=== PATIENT | female | born 1995 | race Two or more races ===

== ENCOUNTER 2024-07-26 12:02 | Observation (INO) | payer MEDICAID, SELFPAY ==
[2024-07-26 12:39] VITALS: BMI 22.3
[2024-07-26] MEDS ORDERED: hydrALAZINE 20 MG/ML VIAL SLOW IVP PRN ×2 (12:48→14:13)
[2024-07-26 13:54] LABS: FFN Internal QC Analyzer PASS (PASS); FFN Internal QC Cassette PASS (PASS); Fetal Fibronectin Negative (Negative)
[2024-07-26] MEDS ORDERED: Betamet Acet/Betamet Na Ph 30 MG/5 ML VIAL ONE (14:05)
[2024-07-26] MEDS ORDERED: Carboprost 250 MCG/ML AMP IM PRN (14:13)
[2024-07-26] MEDS ORDERED: Methylergonovine 0.2 MG/ML VIAL IM PRN (14:13)
[2024-07-26] MEDS ORDERED: Acetaminophen 500 MG TAB PO PRN (14:13)
[2024-07-26] MEDS ORDERED: Ondansetron PF 4 MG/2 ML Vial IVP PRN (14:13)
[2024-07-26] MEDS ORDERED: Misoprostol 200 MCG TAB PR PRN (14:13)
[2024-07-26] MEDS ORDERED: Tranexamic Acid 1,000 MG/10 ML VIAL IVP PRN (14:13)
[2024-07-26] MEDS ORDERED: Diphenoxylate HCl/Atropine Tablet PO PRN (14:13)
[2024-07-26] MEDS ORDERED: Oxytocin 30 units/NS 500 ML 500 ML IV SCH (14:15)
[2024-07-26 14:29] LABS: Bilirubin Neg (Negative); Blood, Urine Negative (Negative); Clarity Clear (Clear); Glucose, Urine (Dipstick) Normal (Negative); Ketone, Urine Negative (Negative); Leukocyte Negative (Negative); Nitrite Negative (Negative); Protein, Urine (Dipstick) Negative (Neg-Trace); Urobilinogen Normal mg/dL (Less than 2); pH, Urine 6.5 (5.0-9.0)
[2024-07-26] MEDS: Betamet Acet/Betamet Na Ph 30 MG/5 ML VIAL IM SCH (14:29)
[2024-07-26 15:07] LABS: Bacteria/HPF Rare-Few HPF (None Seen); CAUTI Indications for Culture Pregnancy; RBC/HPF 0-3 HPF (0-3); Squamous Epithelial Greater than 50 HPF (0-3); WBC/HPF 0-3 HPF (0-3)
[2024-07-26 15:08] LABS: Urine Culture Reflex No No; Urine Culture Reflex Yes Yes
[2024-07-26 15:18] LABS: #Basophils 0.01 10x3/uL (0.0-0.2); #Eosinophils 0.03 10x3/uL (0.0-0.5); #Monocytes 0.58 10x3/uL (0.0-1.1); %Basophils 0.1 % (0.0-2.0); %Eosinophils 0.4 % (0.0-6.0); %Lymphocytes 17.6 % (18.0-47.0); %Monocytes 7.5 % (0.0-10.0); %Neutrophils 73.9 % (40.0-75.0); Hematocrit 32.8 % (34.9-44.5); Hemoglobin 10.8 g/dL (12.0-15.5); Mean Corpuscular HGB CONC 32.9 g/dL (32.0-36.0); Mean Corpuscular Hemoglobin 26.2 pg (27.0-33.0); Mean Corpuscular Volume 79.4 fL (81.6-98.3); Platelet Count 233 10x3/uL (150-450); RBC Distribution Width 13.2 % (11.5-14.5); Red Blood Cell (RBC) Count 4.13 10x6/uL (3.90-5.03); White Blood Cell (WBC) Count 7.7 10x3/uL (3.5-10.5)
[2024-07-26 15:36] LABS: ALT (SGPT) Less than 7 U/L (8-55); AST (SGOT) 11 U/L (5-34); Albumin 2.9 g/dL (3.5-5.0); Alkaline Phosphatase 92 U/L (40-110); Anion Gap 14 mmol/L (10-20); BUN (Urea Nitrogen) 4 mg/dL (7.0-18.7); Bilirubin, Total 0.4 mg/dL (0.2-1.2); Calc. Creatinine Clearance 128 mL/min (70-130); Calcium 8.8 mg/dL (7.8-10.44); Carbon Dioxide 18 mmol/L (22-29); Chloride 108 mmol/L (98-107); Estimated GFR 124; Globulin 3.8 g/dL (2.4-3.5); Glucose 101 mg/dL (70-105); Potassium 3.5 mmol/L (3.5-5.1); Protein, Total 6.7 g/dL (6.0-8.3); Sodium 136 mmol/L (136-145)
[2024-07-26 15:48] LABS: Fetal Membranes Rupture No Membranes Rupture (No Rupture)
[2024-07-26 15:56] LABS: HBsAg Index 0.23 S/CO (0-0.99); Hep B Surf Ag - L&D Non-Reactive S/CO (NonReactive)
[2024-07-26 15:57] LABS: Syphilis Antibody Nonreactive (Nonreactive); Syphilis Antibody Index 0.04 S/CO (<1.00 Non-Reactive)
== END 2024-07-27 14:41 | disposition home health service (06) ==
LOC: CSHLD/OP 12:02 → CSHLD 14:00
PROVIDERS: ADMIT Obstetrics & Gynecology; ATTEND Obstetrics & Gynecology
DX: O41.03X0 Oligohydramnios, third trimester, not applicable or unspecified (principal); O99.891 Other specified diseases and conditions complicating pregnancy; R10.2 Pelvic and perineal pain; Z3A.33 33 weeks gestation of pregnancy
CPT/HCPCS: 51701; 76815; 76819; 80053; 81001; 82731; 84112; 85025; 86780; 86850; 86900; 86901; 87086; 87340; 96372; 99285; G0378

== ENCOUNTER 2024-08-09 12:23 | Day surgery (SDC) | payer MEDICAID ==
[2024-08-09 13:02] VITALS: BMI 22.3
== END 2024-08-09 16:23 | disposition home or self-care (01) ==
LOC: CSHLD/OP 12:23
PROVIDERS: ATTEND Obstetrics & Gynecology
DX: O41.03X0 Oligohydramnios, third trimester, not applicable or unspecified (principal); Z3A.34 34 weeks gestation of pregnancy; Z79.899 Other long term (current) drug therapy
CPT/HCPCS: 76819; 99282

== ENCOUNTER 2024-09-04 10:56 | Inpatient (IN) | payer MEDICAID ==
[2024-09-04] MEDS ORDERED: hydrALAZINE 20 MG/ML VIAL SLOW IVP PRN (11:22)
[2024-09-04] MEDS ORDERED: Lactated Ringer's 1,000 ML IV SCH (11:45)
[2024-09-04 12:57] LABS: #Basophils 0.01 10x3/uL (0.0-0.2); #Eosinophils 0.01 10x3/uL (0.0-0.5); #Monocytes 0.49 10x3/uL (0.0-1.1); #Neutrophils 5.39 10x3/uL (1.5-8.4); %Basophils 0.1 % (0.0-2.0); %Eosinophils 0.1 % (0.0-6.0); %Lymphocytes 17.9 % (18.0-47.0); %Monocytes 6.8 % (0.0-10.0); %Neutrophils 74.8 % (40.0-75.0); Hematocrit 29.5 % (34.9-44.5); Hemoglobin 9.6 g/dL (12.0-15.5); Mean Corpuscular HGB CONC 32.5 g/dL (32.0-36.0); Mean Corpuscular Volume 73.8 fL (81.6-98.3); Mean Platelet Volume 11.7 fL (7.4-10.4); Platelet Count 275 10x3/uL (150-450); RBC Distribution Width 14.8 % (11.5-14.5); White Blood Cell (WBC) Count 7.2 10x3/uL (3.5-10.5)
[2024-09-04] MEDS: Ondansetron PF 4 MG/2 ML Vial IVP PRN (13:10)
[2024-09-04 13:15] LABS: ALT (SGPT) 8 U/L (8-55); AST (SGOT) 11 U/L (5-34); Albumin 2.7 g/dL (3.5-5.0); Alkaline Phosphatase 115 U/L (40-110); Anion Gap 13 mmol/L (10-20); BUN (Urea Nitrogen) 8 mg/dL (7.0-18.7); Bilirubin, Total 0.5 mg/dL (0.2-1.2); Calc. Creatinine Clearance 0 mL/min (70-130); Calcium 8.5 mg/dL (7.8-10.44); Carbon Dioxide 19 mmol/L (22-29); Chloride 108 mmol/L (98-107); Estimated GFR 124; Globulin 3.2 g/dL (2.4-3.5); Glucose 81 mg/dL (70-105); Magnesium 1.8 mg/dL (1.6-2.6); Potassium 3.8 mmol/L (3.5-5.1); Protein, Total 5.9 g/dL (6.0-8.3); Sodium 136 mmol/L (136-145)
[2024-09-04 13:17] LABS: Platelet Adequacy Comment Appears Adequate
[2024-09-04 13:18] LABS: Hypochromia SLIGHT = 6-15 cells (100X) (0-5/hpf); Microcytosis SLIGHT = 6-15 cells (100X) (0-5/hpf); Ovalocytes SLIGHT = 2-5 cells (100X) (0-1/hpf); Polychromasia SLIGHT = 2-3 cells (100X) (0-2/hpf)
[2024-09-04 21:27] VITALS: BMI 26.4
[2024-09-04] MEDS ORDERED: Methylergonovine 0.2 MG/ML VIAL IM PRN (21:33)
[2024-09-04] MEDS ORDERED: Lidocaine 1% (PF) 30 ML VIAL SC PRN (21:33)
[2024-09-04] MEDS ORDERED: Tranexamic Acid 1,000 MG/10 ML VIAL IVP PRN (21:33)
[2024-09-04] MEDS ORDERED: Misoprostol 200 MCG TAB PR PRN (21:33)
[2024-09-04] MEDS ORDERED: Oxytocin 30 units/NS 500 ML 500 ML IV SCH (21:45)
[2024-09-04] MEDS ORDERED: Misoprostol 100 MCG TAB VAG SCH (22:30)
[2024-09-04 22:51] LABS: HBsAg Index 0.18 S/CO (0-0.99); HIV (1/2) Antibody/Antigen Non-Reactive (NonReactive); HIV 1/2 INDEX 0.11 S/CO (<1.00); Hep B Surf Ag - L&D Non-Reactive S/CO (NonReactive); Syphilis Antibody Nonreactive (Nonreactive); Syphilis Antibody Index 0.02 S/CO (<1.00 Non-Reactive)
[2024-09-05 02:13] LABS: Hematocrit 31.4 % (34.9-44.5); Hemoglobin 9.7 g/dL (12.0-15.5); Mean Corpuscular HGB CONC 30.9 g/dL (32.0-36.0); Mean Corpuscular Hemoglobin 23.4 pg (27.0-33.0); Mean Corpuscular Volume 75.7 fL (81.6-98.3); Mean Platelet Volume 11.2 fL (7.4-10.4); Platelet Count 267 10x3/uL (150-450); Red Blood Cell (RBC) Count 4.15 10x6/uL (3.90-5.03); White Blood Cell (WBC) Count 6.7 10x3/uL (3.5-10.5)
[2024-09-05] MEDS ORDERED: Oxytocin 30 units/NS 500 ML 500 ML IV SCH (04:00)
[2024-09-05] MEDS ORDERED: Milk Of Magnesia 30 ML UDCUP PO PRN (14:11)
[2024-09-05] MEDS ORDERED: Benzocaine-Menthol 82.5 ML CAN TOP PRN (14:11)
[2024-09-05] MEDS ORDERED: Lanolin Ointment 7 GM TUBE TOP PRN (14:11)
[2024-09-05] MEDS ORDERED: hydrALAZINE 20 MG/ML VIAL SLOW IVP PRN (14:11)
[2024-09-05] MEDS ORDERED: Bisacodyl 10 MG SUPP PR PRN (14:11)
[2024-09-05] MEDS: fentaNYL/Ropivacaine Epidural 100 ML ONE (16:17)
[2024-09-05] MEDS: Ibuprofen 800 MG TAB PO SCH (16:20)
[2024-09-05] MEDS: Misoprostol 100 MCG TAB ONE (17:44)
[2024-09-05] MEDS: Ferrous Sulfate 325 MG TAB PO SCH (17:44)
[2024-09-05] MEDS: Boostrix 0.5 ML (Tdap) VIAL (>/=7 yrs of age) IM ONE (17:44)
[2024-09-05] MEDS: Lactated Ringer's 1,000 ML IV SCH (17:45)
[2024-09-05] MEDS ORDERED: Ibuprofen 800 MG TAB PO SCH (22:00)
[2024-09-05] MEDS: Docusate 100 MG CAP PO SCH (22:58)
[2024-09-06] MEDS ORDERED: HYDROcodone/Acetaminophen 5/325 mg Tablet PO PRN (02:19)
[2024-09-06] MEDS: Prenatal Vitamin 1 TAB PO SCH (08:27)
[2024-09-06 11:49] VITALS: BP 120/80; TEMP 97.6
== END 2024-09-06 17:25 | disposition home or self-care (01) | DRG 807 ==
LOC: CSHLD/OP 10:56 → CSHLD 21:52 → CSHPP 09-05 16:58
PROVIDERS: ADMIT Student in an Organized Health Care Education/Training Program; ATTEND Student in an Organized Health Care Education/Training Program
PROC: 10E0XZZ Delivery of Products of Conception, External Approach (ICD-10-PCS; principal; 2024-09-05)
PROC: 10H07YZ Insertion of Other Device into Products of Conception, Via Natural or Artificial Opening (ICD-10-PCS; 2024-09-05)
PROC: 10907ZC Drainage of Amniotic Fluid, Therapeutic from Products of Conception, Via Natural or Artificial Opening (ICD-10-PCS; 2024-09-05)
DX: O76 Abnormality in fetal heart rate and rhythm complicating labor and delivery (principal); Z37.0 Single live birth; Z3A.37 37 weeks gestation of pregnancy; J45.909 Unspecified asthma, uncomplicated; O99.52 Diseases of the respiratory system complicating childbirth
CPT/HCPCS: 36415; 51702; 76816; 76819; 80053; 83735; 85025; 86780; 86850; 86900; 86901; 87340; 87389; 99285; J2405